=== PATIENT | male | born 1995 | race African-American/Black ===

== ENCOUNTER 2016-10-15 20:42 | Emergency (ER) | payer MEDICAID ==
[~2016-10-15] VITALS: Ht 170.2 cm; Wt 125.6 kg
[2016-10-15 21:49] VITALS: BP 143/90
== END 2016-10-16 03:45 | disposition left against medical advice (07) ==
LOC: ER 20:42
DX: R11.2 Nausea with vomiting, unspecified (principal); R19.7 Diarrhea, unspecified; R06.02 Shortness of breath; R53.83 Other fatigue; R63.0 Anorexia; Z53.21 Procedure and treatment not carried out due to patient leaving prior to being seen by health care provider

== ENCOUNTER 2019-09-16 20:23 | Emergency (ER) | payer MEDICAID ==
[~2019-09-16] VITALS: Ht 170.2 cm; Wt 90.0 kg
[2019-09-16 23:03] LABS: BASOPHILS % 0.9 % (0.0-2.0); EOSINOPHILS % 1.9 % (0.0-5.0); HEMOGLOBIN. 16.5 g/dL (14.0-18.0); LYMPHOCYTES % 28.3 % (20.0-50.0); MEAN PLATELET VOLUME 8.4 fl (7.4-10.4); MONOCYTES % 7.5 % (2.0-8.0); NEUTROPHILS % 61.4 % (40.0-76.0); PLATELET 252 x1000/uL (130-400); RED CELL DISTRIBUTION WIDTH 14.1 % (11.6-14.6)
[2019-09-16 23:09] LABS: CHLORIDE 102 mEq/L (98-107)
[2019-09-16 23:38] LABS: CLARITY URINE CLEAR (CLEAR); COLOR URINE YELLOW (YELLOW); KETONES URINE 3+ (NEGATIVE); LEUKOCYTE ESTERASE URINE TRACE (NEGATIVE); NITRITE URINE NEGATIVE (NEGATIVE); OCCULT BLOOD URINE NEGATIVE (NEGATIVE); PROTEIN URINE TRACE (NEGATIVE); SPECIFIC GRAVITY URINE 1.023 (1.005-1.030)
[2019-09-17 00:58] VITALS: BP 132/82
== END 2019-09-17 01:02 | disposition home or self-care (01) ==
LOC: ER 20:23
DX: R10.31 Right lower quadrant pain (principal); J45.909 Unspecified asthma, uncomplicated; Z90.89 Acquired absence of other organs
CPT/HCPCS: 36415; 80053; 81003; 85025; 99283